=== PATIENT | female | born 1955 | race Hispanic/Latino ===

== ENCOUNTER → 2020-11-05 | Outpatient (CLI) | payer MEDICARE | END | disposition home or self-care (01) | LOC: RAH 15:32 | PROVIDERS: ATTEND Family Medicine | DX: Z12.31 Encounter for screening mammogram for malignant neoplasm of breast (principal) | CPT/HCPCS: 77067 ==

== ENCOUNTER 2021-04-08 05:30 | Observation (INO) | payer MEDICARE ==
[2021-04-07 11:34] LABS: BASOPHILS % (AUTO) 0.3 % (0.0-5.0); EOSINOPHILS % (AUTO) 0.8 % (0.0-8.0); HEMATOCRIT 41.5 % (36-48); LYMPHOCYTES % (AUTO) 39.1 % (21.0-51.0); MEAN CORPUSCULAR HEMOGLOBIN 30.6 pg (27.0-33.0); MEAN CORPUSCULAR HGB CONC 32.3 g/dL (32.0-36.0); MEAN CORPUSCULAR VOLUME 94.7 fL (79-99); MONOCYTES % (AUTO) 6.3 % (3.0-13.0); NEUTROPHILS % (AUTO) 53.3 % (40.0-77.0); PLATELET COUNT (AUTO) 244 K/uL (130-400); RED BLOOD CELL COUNT(AUTO) 4.38 MIL/uL (4.00-5.50); RED CELL DISTRIBUTION WIDTH 12.8 % (11.0-15.5); WHITE BLOOD COUNT (AUTO) 6.4 K/uL (4.8-10.8)
[2021-04-07 12:20] VITALS: BP 112/61
[~2021-04-08] VITALS: Ht 162.6 cm; Wt 62.2 kg
[2021-04-08] VITALS (25 sets, daily range): BP systolic 100–149; BP diastolic 46–80
[~2021-04-08 05:30] MED LIST: 0.9%NACL 10ML VIAL IVP PRN; 0.9%NACL 10ML VIAL IVP SCH; ATOR40TA69 PO; DIPH25TA51 PO; FLUT16H NS; LISI20TA24 PO; OXYTOCIN-LR 20 UNITS/1000 ML 1,000 ML IV SCH; Vitamin D PO; [UNRECOGNIZED DRUG - CODE] IL
[2021-04-08] MEDS ORDERED: LACTATED RINGERS 1000ML 1,000 ML IV ONE (06:10)
[2021-04-08] MEDS ORDERED: DEXAMETHASONE SOD PHOSPHATE 10MG/ML 1ML VIAL ONE (06:52)
[2021-04-08] MEDS ORDERED: SUCCINYLCHOLINE CHLORIDE 20 MG/ML 10 ML VIAL ONE (06:52)
[2021-04-08] MEDS ORDERED: LIDOCAINE PF 100MG/5ML (2%) SYRINGE 5ML ONE (06:52)
[2021-04-08] MEDS ORDERED: FENTANYL CITRATE PF 50 MCG/1 ML 2ML VIAL ONE (06:53)
[2021-04-08] MEDS ORDERED: GLYCOPYRROLATE 1 MG/5 ML SYRINGE ONE (06:53)
[2021-04-08] MEDS ORDERED: ROCURONIUM 10MG/1ML SYR 10 MG/ML ML ONE (06:53)
[2021-04-08] MEDS ORDERED: MIDAZOLAM HCL 1 MG/ML 2ML VIAL ONE (06:53)
[2021-04-08] MEDS ORDERED: NEOSTIGMINE 5MG/5ML SYR IV ONE (06:53)
[2021-04-08] MEDS ORDERED: ONDANSETRON 4MG INJ ONE (06:53)
[2021-04-08] MEDS ORDERED: PROPOFOL 10 MG/ML 20ML VIAL IV ONE (06:53)
[2021-04-08] MEDS ORDERED: CEFAZOLIN SODIUM 1 GM VIAL ONE (07:14)
[2021-04-08] MEDS ORDERED: MEPERIDINE-PF 25 MG/ML SYG ONE (07:58)
[2021-04-08] MEDS: SIMETHICONE 80 MG TAB.CHEW CHEW SCH ×3 (09:00→20:26)
[2021-04-08] MEDS: DOCUSATE SODIUM 100 MG CAP PO SCH ×2 (09:00→20:25)
[2021-04-08] MEDS ORDERED: HYDROCODONE/ACETAMINOPHEN 5/325 MG TAB PO PRN (13:00)
[2021-04-08] MEDS ORDERED: ACETAMINOPHEN WITH CODEINE 1 TAB TAB PO PRN (13:00)
[2021-04-08] MEDS ORDERED: BISACODYL 10 MG SUPP.RECT RC PRN (13:00)
[2021-04-08] MEDS ORDERED: IBUPROFEN 800 MG TAB PO PRN (13:00)
[2021-04-08] MEDS: PROMETHAZINE HCL 25 MG/ML 1ML AMPULE IM PRN (15:30)
[2021-04-08] MEDS: MEPERIDINE-PF 75 MG/ML SYG IM PRN (15:30)
[2021-04-08] MEDS: DEXTROSE 5 %-0.45 % NACL 1,000 ML IV SCH (17:46)
[2021-04-09] MEDS: DEXTROSE 5 %-0.45 % NACL 1,000 ML IV SCH (01:32)
[2021-04-09 03:11] VITALS: BP 109/52
[2021-04-09 06:14] LABS: HEMATOCRIT 35.8 % (36-48); MEAN CORPUSCULAR HEMOGLOBIN 30.7 pg (27.0-33.0); MEAN CORPUSCULAR HGB CONC 33.2 g/dL (32.0-36.0); MEAN CORPUSCULAR VOLUME 92.5 fL (79-99); RED BLOOD CELL COUNT(AUTO) 3.87 MIL/uL (4.00-5.50); WHITE BLOOD COUNT (AUTO) 10.5 K/uL (4.8-10.8)
[2021-04-09] MEDS: PROMETHAZINE HCL 25 MG/ML 1ML AMPULE IM PRN (06:33)
[2021-04-09] MEDS: MEPERIDINE-PF 75 MG/ML SYG IM PRN (06:34)
[2021-04-09 07:11] VITALS: BP 97/50
[2021-04-09] MEDS: SIMETHICONE 80 MG TAB.CHEW CHEW SCH ×4 (09:16→21:47)
[2021-04-09] MEDS: DOCUSATE SODIUM 100 MG CAP PO SCH ×2 (09:16→21:47)
[2021-04-09 11:09] VITALS: BP 115/56
[2021-04-09 15:47] VITALS: BP 137/69
[2021-04-09 19:29] VITALS: BP 113/60
[2021-04-09 22:35] VITALS: BP 121/64
[2021-04-10 02:29] VITALS: BP 101/55
[2021-04-10 07:24] VITALS: BP 102/60
[2021-04-10] MEDS: DOCUSATE SODIUM 100 MG CAP PO SCH (08:15)
[2021-04-10] MEDS: SIMETHICONE 80 MG TAB.CHEW CHEW SCH (08:15)
[2021-04-10 11:14] VITALS: BP 109/59
== END 2021-04-10 14:15 | disposition home or self-care (01) ==
LOC: DAH 05:30 → DAHIP 05:31 → DAH 05:31 → WSH 09:30
PROVIDERS: ADMIT Obstetrics & Gynecology; ATTEND Obstetrics & Gynecology
DX: N81.10 Cystocele, unspecified (principal); Z20.822 Contact with and (suspected) exposure to COVID-19; N81.6 Rectocele; E78.5 Hyperlipidemia, unspecified; E78.00 Pure hypercholesterolemia, unspecified; M85.80 Other specified disorders of bone density and structure, unspecified site; Z90.710 Acquired absence of both cervix and uterus; Z90.49 Acquired absence of other specified parts of digestive tract; Z79.899 Other long term (current) drug therapy; Z98.890 Other specified postprocedural states
CPT/HCPCS: 36415 ×2; 57260; 57288; 85025; 85027; 86850; 86900; 86901; 87635; 88305; 96372 ×2; A4215; A4216; A4221; A4222; A4223 ×2; A4314; A4351; A4354; A4510; A4600; A4606; A4663; A6260; C1771; C9803; G0168; G0378 ×55; G0379; J0330; J0690; J1100; J2001; J2175 ×3; J2250; J2405; J2550 ×2; J2704; J2710; J3010; J3490; J7120 ×2; 96360; 96361

== ENCOUNTER → 2021-11-26 | Outpatient (CLI) | payer MEDICARE ==
[~2021-11-26] MED LIST changes: -0.9%NACL 10ML VIAL IVP PRN; -0.9%NACL 10ML VIAL IVP SCH; +HYDR-3421 PO; -OXYTOCIN-LR 20 UNITS/1000 ML 1,000 ML IV SCH
== END | disposition home or self-care (01) ==
LOC: RAH 14:19
PROVIDERS: ATTEND Family Medicine
DX: Z12.31 Encounter for screening mammogram for malignant neoplasm of breast (principal)
CPT/HCPCS: 77067

== ENCOUNTER → 2022-09-10 | Outpatient (CLI) | payer MEDICARE ==
[2022-09-10 08:48] LABS: INR 0.94 (0.85-1.15); PROTHROMBIN TIME 10.3 SEC (9.6-11.6)
[2022-09-10 08:50] LABS: PARTIAL THROMBOPLASTIN TIME 27.4 SEC (26.3-35.5)
== END | disposition home or self-care (01) ==
LOC: RAH 07:58
PROVIDERS: ATTEND Family Medicine
DX: Z01.812 Encounter for preprocedural laboratory examination (principal); N63.20 Unspecified lump in the left breast, unspecified quadrant
CPT/HCPCS: 36415; 76642; 85610; 85730

== ENCOUNTER → 2023-05-14 | Outpatient (CLI) | payer MEDICARE | END | disposition home or self-care (01) | LOC: RAH 12:43 | PROVIDERS: ATTEND Family Medicine | DX: R92.8 Other abnormal and inconclusive findings on diagnostic imaging of breast (principal) | CPT/HCPCS: 76641 ==

== ENCOUNTER → 2023-07-23 | Outpatient (CLI) | payer MEDICARE | END | disposition home or self-care (01) | LOC: RAH 09:31 | PROVIDERS: ATTEND Family Medicine | DX: N63.21 Unspecified lump in the left breast, upper outer quadrant (principal); R92.333 Mammographic heterogeneous density, bilateral breasts | CPT/HCPCS: 77066 ==

== ENCOUNTER 2023-08-30 22:26 | Emergency (ER) | payer MEDICARE ==
[~2023-08-30] VITALS: Ht 162.6 cm; Wt 60.8 kg
[2023-08-30] MEDS: EPINEPHRINE PF 1MG (1:1,000) 1 MG/ML AMP ONE (22:41)
[2023-08-30] MEDS: DiphenhydrAMINE HCL 50 MG/ML VIAL IM ONE (22:43)
[2023-08-30] MEDS: SOLU-MEDROL 125MG VIAL IVP ONE (22:46)
[2023-08-30] MEDS: EPINEPHRINE PF 1MG (1:1,000) 1 MG/ML AMP IM ONE (22:47)
[2023-08-31] MEDS ORDERED: FAMO-136 PO (00:25)
[2023-08-31] MEDS ORDERED: PRED20TA3 PO (00:25)
[2023-08-31] MEDS ORDERED: DIPH50 PO (00:25)
[2023-08-31 00:42] VITALS: BP 123/57; PULSE 72; RESP 16; O2SAT 99
== END 2023-08-31 00:44 | disposition home or self-care (01) ==
LOC: EDH 22:26
DX: T78.2XXA Anaphylactic shock, unspecified, initial encounter (principal); I10 Essential (primary) hypertension; E78.00 Pure hypercholesterolemia, unspecified; Z79.899 Other long term (current) drug therapy; Z88.5 Allergy status to narcotic agent; Z88.8 Allergy status to other drugs, medicaments and biological substances
CPT/HCPCS: 99285; 96374; 96372 ×2; J1200; J2930; J0171

== ENCOUNTER → 2024-07-26 | Outpatient (CLI) | payer MEDICARE ==
[~2024-07-26] MED LIST changes: +DIPH50 PO; +FAMO-136 PO; +PRED20TA3 PO
--- NOTE | 2024-07-27 09:25 | HMCIMG ---
Diagnostic mammogram and left breast ultrasound HISTORY: UNSPECIFIED LUMP TO LEFT BREAST COMPARISON: 07/17/2022 TECHNIQUE: Bilateral digital diagnostic mammogram was performed. Left breast ultrasound images also were obtained. FINDINGS: Parenchymal density: The breasts are heterogeneously dense, which may obscure small masses. There is no evidence of a dominant mass, or suspicious microcalcification. There is no evidence of nipple retraction or skin thickening. Particular attention shows normal-appearing axillary regions, there are some small lymph nodes visible on the left with normal fatty replaced cleo. Left breast ultrasound shows normal-appearing parenchyma. There are no focal masses. There are no cysts. There is no architectural distortion or acoustical shadowing. There are a few normal-appearing lymph nodes in the axilla with normal fatty replaced cleo, largest measures 2.1 cm. IMPRESSION: 1. Stable bilateral mammogram. 2. No suspicious focal lesions identified on left breast ultrasound. 3. There are a few normal-appearing lymph nodes in the left axilla with normal fatty replaced cleo, there are no suspicious findings. The patient was entered into a reminder system with a target due date for their next mammogram. BI-RADS CATEGORY 1: NEGATIVE Recommend monthly self breast exam as well as annual clinical examination. A negative x-ray should not delay biopsy if a dominant or clinically suspicious mass is present, since 8-10% of cancers are not identified by mammography. Dense breasts particularly, may obscure an underlying neoplasm. Some of these may be detected clinically and therefore, clinical examination is an essential part of breast evaluation.
== END | disposition home or self-care (01) ==
LOC: RAH 10:20
PROVIDERS: ATTEND Family Medicine
DX: R92.333 Mammographic heterogeneous density, bilateral breasts (principal); N63.21 Unspecified lump in the left breast, upper outer quadrant
CPT/HCPCS: 76641; 77066

== ENCOUNTER 2025-07-05 17:44 | Emergency (ER) | payer MEDICARE ==
[~2025-07-05] VITALS: Ht 162.6 cm; Wt 61.2 kg
[~2025-07-05 17:44] MED LIST changes: -DIPH50 PO; +DIPH50CA38 PO; +TRAM-543 PO
[2025-07-05] MEDS: FAMOTIDINE 20MG VIAL IV ONE (18:07)
--- NOTE | 2025-07-05 18:07 | NUR ---
PT FEEL LIKE HER THROAT IS GETTING TIGHTER,RR18, SPO2 98. NON-REBREATHER APPLIED WITH 10L/MIN O2,PATIENT IS SAT UP TO FOWLERS WHICH HELPED HER A LITTLE BIT.
[2025-07-05] MEDS: 0.9%NACL 1000ML 1,000 ML IV ONE (18:08)
--- NOTE | 2025-07-05 19:00 | NUR ---
PT STATES SHE FEELS BETTER,HER THROAT DOES NOT FEEL TIGHT ANYMORE AND THE TREMBLING SUBSIDED.
[2025-07-05] MEDS ORDERED: METH4TAB3 PO (20:14)
[2025-07-05] MEDS ORDERED: FAMO-136 PO (20:14)
[2025-07-05] MEDS ORDERED: DIPH50CA38 PO (20:14)
--- NOTE | 2025-07-05 20:14 | ERN ---
ED Note History of Present Illness Stated Complaint: ALLERGIC REACTION Chief Complaint: Allergic Reaction Time Seen by MD: 17:46 Time Seen by Midlevel: 17:46 Dictation: The patient is a 69-year-old female with a history of hyperlipidemia who presents to the emergency department with complaints of allergic reaction. Patient reports she feels tingling and swelling to her upper lip and her tip of her tongue. Reports she was eating in [place] [employer] and did not know it had chocolate which she is allergic to. Patient reports that with chocolate she gets swelling. Patient reports that incident happened just prior to arrival. Reports she took 25 mg of p.o. Benadryl. Allergies: Coded Allergies: Latex, Natural Rubber (Unverified Allergy, Unknown, 04/07/21) chocolate flavor (Unverified Allergy, Unknown, 04/07/21) codeine (Verified Allergy, Unknown, 04/08/21) diphenoxylate (Unverified Allergy, Unknown, 04/07/21) epinephrine (Unverified Allergy, Unknown, 04/07/21) lidocaine (Unverified Allergy, Unknown, 04/07/21) Home Meds Active Scripts Tramadol HCl/Acetaminophen (Tramadol-Acetaminophn 37.5-325) 37.5 Mg-325 Mg Tablet, 2 TAB PO Q6HPRN PRN for MODERATE TO SEVERE PAIN, #20 TAB 0 Refills Prov:SUNITA ANGUIANO 01/20/25 Famotidine (Pepcid) 20 Mg Tablet, 20 MG PO DAILY, #30 TAB Prov:ANA MARIA BARRETO MD 08/31/23 Prednisone (Prednisone) 20 Mg Tablet, 1 TAB PO AD for 6 Days, #14 TAB 0 Refills TAKE 3 TAB BY MOUTH daily X3 DAYS, THEN TAKE 2 TAB BY MOUTH daily X2 DAYS, THEN TAKE 1 TAB BY MOUTH ONCE A DAY X1 DAY. Prov:ANA MARIA BARRETO MD 08/31/23 Diphenhydramine HCl (Benadryl) 50 Mg Cap, 50 MG PO QID PRN for itching for 10 Days, #30 CAP 0 Refills Prov:ANA MARIA BARRETO MD 08/31/23 Hydroxyzine HCl (Hydroxyzine HCl) 25 Mg Tablet, 25 MG PO TIDP for anxiety, #30 TAB Prov:VAIBHAV BRAND 08/29/21 Reported Medications Estradiol (Estradiol) 37.5 Mg Pellet.ea., 0.01 % [place] QWEEK 04/07/21 Fluticasone Propionate (Fluticasone Propionate) 16 Gm [place].susp, 50 MCG NS AM 04/07/21 [Vitamin D] No Conflict Check, 26793 PO AD twice a week 04/07/21 Diphenhydramine HCl (Benadryl Allergy) 25 Mg Tablet, 25 MG PO DAILY, TAB 04/07/21 Atorvastatin Calcium (LIPITOR) 40 Mg Tablet, 40 MG PO PM, TAB 04/07/21 Lisinopril (Lisinopril) 20 Mg Tablet, 20 MG PO DAILY, TAB 04/07/21 Past Medical History Past Medical History: High Cholesterol, Hypertension Surgical History: Hysterectomy, Cholecystectomy Surgical History Other: D&C Family History: Negative Social History: Negative History: Not Applicable RN Note Reviewed/Agreed w/PFSH: Yes Review of System Dictation Constitutional: Negative for fever,chills, and weight loss Eyes: Negative for injury, pain,redness, and discharge ENT: Negative for injury,pain or swelling Cardiovascular: Negative for chest pain, palpitations, and edema Respiratory: Negative for shortness of breath, cough, and wheezing, Abdomen/GI: Negative for abdominal pain, nausea, vomiting, diarrhea, and constipation Back: Negative for injury and pain : Negative for injury, bleeding and discharge MS/Extremity: Negative for injury and deformity Skin: Negative for rash, and discoloration positive for tingling to lips and tongue Neuro: Negative for headache, weakness, numbness, tingling, and seizure Psych: Negative for suicide ideation, homicidal ideation, and hallucinations Initial Vital Sign VS Vital Signs Date Time Temp Pulse Resp B/P (MAP) Pulse Ox O2 Delivery O2 Flow Rate FiO2 07/05/25 17:45 97.7 79 20 179/98 100 Room Air 07/05/25 18:00 0 21 Physical Exam Dictation Vital Signs reviewed General Appearance: Alert, oriented x 3, no acute distress, well developed, nourished. Head and Face: non-traumatic. Eyes: PERRL, pink conjunctivas, eyelid no trauma, anterior chamber with arcus senilis. Ears: Pinnas intact and no signs of trauma or erythema ear canals clear and no discharge TM no erythema Nose: No discharge, no bleeding. Oropharynx: Mouth normal, tongue pink. No tongue swelling, lips do not appear swollen pharynx clear,no erythema, tonsils no exudates, no abscesses noted, mucous membrane moist Neck: Supple, non-tender, no thyromegaly, no masses, no JVD, no bruits Breast:Deferred Chest:No tenderness, no crepitus, no paradoxical movement, no retractions Lungs:Clear, well-ventilated, symmetric, no rales, no wheezing, no rhonchi, no stridor, good breath sounds bilaterally Heart: Regular rate, regular rhythm, no murmur, no gallops Vascular: no peripheral edema, Abdomen: Soft, positive bowel sounds, nondistended, no guarding, nontender, no rebound, no masses no hepatomegaly, no splenomegaly, no Ulrich's sign, no hernias. Rectal: Deferred Genital: Deferred Neurological: Normal speech, motor function intact, sensory function intact Musculoskeletal: Neck nontender, full range of motion, back nontender, full range of motion, Extremities: nontender, full range of motion Skin: Color pink, dry, no turgor, no rash, no lacerations, no abrasions, no c ontusions. Lymphatic: Deferred Results (Laboratory/Radiology) Labs Reviewed?: Yes ED Course ED Course Orders Procedure Category Date Status Time Methylprednisolone PHA 07/05/25 Complete Succ 125mg (Solu-Medr 18:00 Famotidine 20mg Vial PHA 07/05/25 Complete (Pepcid 20mg Vial) 18:00 0.9%Nacl 1000ml (Ns PHA 07/05/25 Complete 1000ml) 18:00 Diphenhydramine Hcl PHA 07/05/25 Complete (Benadryl Inj) 18:00 Current Medications Medications (Trade) Dose Ordered Sig/Manolo Route PRN Reason Start Time Stop Time Status Last Admin Dose Admin Diphenhydramine HCl (BENAdryl INJ) 25 mg ONCE ONCE IV 07/05/25 18:00 07/05/25 18:01 DC 07/05/25 18:08 Famotidine (Pepcid 20mg Vial) 20 mg ONCE ONCE IV 07/05/25 18:00 07/05/25 18:01 DC 07/05/25 18:07 Methylprednisolone Sodium Succinate (Solu-medROL 125MG) 125 mg ONCE ONCE IVP 07/05/25 18:00 07/05/25 18:01 DC 07/05/25 18:07 Sodium Chloride 1,000 ml @ 0 mls/hr ONCE ONCE IV 07/05/25 18:00 07/05/25 18:01 DC 07/05/25 18:08 Vital Signs Date Time Temp Pulse Resp B/P (MAP) Pulse Ox O2 Delivery O2 Flow Rate FiO2 07/05/25 19:00 97.7 66 16 145/74 98 Room Air* 0 21 07/05/25 18:19 97.7 81 16 156/52 100 Non-Rebreather+ 10 100 07/05/25 18:00 97.7 71 22 163/71 97 Room Air* 0 21 07/05/25 17:45 97.7 79 20 179/98 100 Room Air Medical Decision Making MDM The patient is a 69-year-old female with a history of hyperlipidemia who presents to the emergency department with complaints of allergic reaction. Patient reports she feels tingling and swelling to her upper lip and her tip of her tongue. Reports she was eating in [place] [employer] and did not know it had chocolate which she is allergic to. Patient reports that with chocolate she gets swelling. Patient reports that incident happened just prior to arrival. Reports she took 25 mg of p.o. Benadryl. Patient received IV allergic reaction medication. Reports she feels better after medication. Denies any shortness of breath or tingling, patient with no swelling to face, no swelling to throat, clear lung sounds. No rash noted. Patient is now calm. At this time patient wishes to be discharged and reports she feels better. Patient with stable vital signs, in no acute distress. We will discharge patient to follow up with PCP. Differential diagnosis: Allergic reaction, anaphylactic reaction, hives Need for hospitalization: Patient does not meet criteria for hospitalization. There are no social concerns with this patient. DX & DISP Disposition: Discharge Departure Impression: Primary Impression: Allergic reaction Condition: Stable Scripts Methylprednisolone (Medrol) 4 Mg Tab.ds.pk 4 MG PO AD for 6 Days, #1 PACK Day 1: Take 2 tablets before breakfast,1 tablet after lunch and supper, and 2 tablets at bedtime. Day 2: Take1 tablet before breakfast,1 tablet after lunch,1 tablet after supper, and 2 tablets at bedtime. Day 3: Take 1 tablet before breakfast, 1 tablet after lunch, 1 tablet after supper, and 1 tablet at bedtime. Day 4: Take 1 tablet before breakfast, 1 tablet after lunch, and 1 tablet at bedtime. Day 5: Take1 tablet before breakfast and 1 tablet at bedtime. Day 6: Take 1 tablet before breakfast. Prov: AUDI MCFARLANE STARLA 07/05/25 Diphenhydramine HCl (Benadryl) 50 Mg Cap 50 MG PO TID PRN for ALLERGIC REACTION for 10 Days, #30 CAP 0 Refills Prov: MCFARLANE,AUDI CHA 07/05/25 Famotidine (Pepcid) 20 Mg Tablet 1 TAB PO BID for 7 Days, #60 TAB 0 Refills Prov: MAEVEAUDI CHA 07/05/25 Additional Instructions: Please follow up with your primary doctor in 1-2 days. Avoid any known allergens. Take your medications as prescribed. If you develop severe swelling to lips, face or drooling or if anything worsens please return to ER. FOLLOW-UP WITH PRIMARY CARE PROVIDER IN 1 TO 2 DAYS. TAKE MEDICATIONS DIRECTED HERE IN THE EMERGENCY ROOM. OKAY TO CONTINUE HOME MEDICATIONS UNLESS OTHERWISE DISCUSSED DURING YOUR VISIT IN THE EMERGENCY ROOM TODAY. RETURN TO YOUR NEAREST EMERGENCY ROOM IF SYMPTOMS WORSEN OR IF THERE IS NO IMPROVEMENT. CALL 911 IF YOU NEED IMMEDIATE ASSISTANCE. TAKE TYLENOL [id number] NEEDED AND IF NO CONTRAINDICATIONS ARE PRESENT. INCREASE ORAL HYDRATION. A WOUND CULTURE OR URINE CULTURE WAS ORDERED HERE IN THE EMERGENCY ROOM DEPARTMENT PLEASE FOLLOW-UP WITH PRIMARY CARE PROVIDER AND ADVISE THEM TO GET REPEAT PORTS FROM OUR FACILITY. IF YOU HAD ANY CECELIA WRAP/SPLINTS THAT WERE APPLIED HERE, PLEASE DO NOT REMOVE THEM UNTIL YOU SEE YOUR PRIMARY CARE OR SPECIALTY. Referrals: NONE (PCP) Time of Disposition: 20:12 I have reviewed the case, and I agree with, Diagnosis and Plan UADI MCFARLANE STARLA Jul 05, 2025 20:14
[2025-07-05 20:15] VITALS: BP 139/52; PULSE 71; RESP 17; TEMP 98.5; O2SAT 99
== END 2025-07-05 20:24 | disposition home or self-care (01) ==
LOC: EDH 17:44
DX: T78.19XA Other adverse food reactions, not elsewhere classified, initial encounter (principal); E78.00 Pure hypercholesterolemia, unspecified; I10 Essential (primary) hypertension; R22.0 Localized swelling, mass and lump, head; R20.2 Paresthesia of skin; Z88.5 Allergy status to narcotic agent; Z91.018 Allergy to other foods; Z79.899 Other long term (current) drug therapy; Z90.49 Acquired absence of other specified parts of digestive tract; Z90.710 Acquired absence of both cervix and uterus; Z91.040 Latex allergy status; X58.XXXA Exposure to other specified factors, initial encounter
CPT/HCPCS: 99285; 96374; 96375; 96361; J2919; J1200; J1308; J7030